=== PATIENT | female | born 1995 | race Caucasian/White ===

== ENCOUNTER 2017-03-29 03:53 | Emergency (ER) | payer OTHER ==
[2017-03-29 05:01] LABS: BASOPHIL % 0.2 % (0-2); PLATELET COUNT 256 x10^3mcL (130-400); RED CELL DISTRIBUTION WIDTH 14.1 % (11.5-14.5)
[2017-03-29 05:10] LABS: CALCIUM 8.7 mg/dL (8.5-10.1); CARBON DIOXIDE 26.2 mmol/L (21-32); CHLORIDE SERUM 104 mmol/L (98-107); CREATININE SERUM 0.8 mg/dL (0.6-1.0); GFR1 > 60 mL/min; GLUCOSE SERUM 97 mg/dL (74-106); POTASSIUM SERUM 4.1 mmol/L (3.5-5.1); SODIUM SERUM 138 mmol/L (136-145)
[2017-03-29 05:14] LABS: ALBUMIN 3.5 g/dL (3.4-5.0); ALKALINE PHOSPHATASE 58 U/L (46-116); ALT/SGPT 13 U/L (14-59); AST/SGOT 13 U/L (15-37); BILIRUBIN TOTAL 0.6 mg/dL (0.20-1.00); TOTAL PROTEIN, SERUM 6.7 g/dL (6.4-8.2)
[2017-03-29 05:18] LABS: UA SPECIFIC GRAVITY 1.025 (1.005-1.035); microscopic required? YES; urine erythrocyte 3+ (NEGATIVE)
[2017-03-29 07:04] VITALS: BP 112/64
== END 2017-03-29 07:04 | disposition home or self-care (01) ==
LOC: ED 03:53
PROVIDERS: Emergency Medicine
DX: K52.9 Noninfective gastroenteritis and colitis, unspecified (principal)
CPT/HCPCS: 36415

== ENCOUNTER 2017-10-09 23:10 | Emergency (ER) | payer OTHER ==
[~2017-10-09] VITALS: Ht 160 cm; Wt 47.6 kg
[2017-10-09 23:16] VITALS: Ht 160 cm; Wt 47.6 kg
[2017-10-10 01:28] VITALS: BP 120/68
== END 2017-10-10 01:28 | disposition home or self-care (01) ==
LOC: ED 23:10
DX: J09.X2 Influenza due to identified novel influenza A virus with other respiratory manifestations (principal); Z88.2 Allergy status to sulfonamides
CPT/HCPCS: 87804; J1885

== ENCOUNTER 2018-11-11 21:06 | Emergency (ER) | payer OTHER ==
[~2018-11-11] VITALS: Ht 152.4 cm; Wt 50.8 kg
[2018-11-11 21:15] VITALS: BP 119/79; Ht 152.4 cm; Wt 50.8 kg
== END 2018-11-11 22:00 | disposition home or self-care (01) ==
LOC: ED 21:06
DX: S13.4XXA Sprain of ligaments of cervical spine, initial encounter (principal); R11.2 Nausea with vomiting, unspecified; M54.9 Dorsalgia, unspecified; M25.559 Pain in unspecified hip; Z88.2 Allergy status to sulfonamides; V49.88XA Car occupant (driver) (passenger) injured in other specified transport accidents, initial encounter; Y93.I9 Activity, other involving external motion; Y92.413 State road as the place of occurrence of the external cause; Y99.8 Other external cause status